=== PATIENT | male | born 2005 | race Caucasian/White ===

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

== ENCOUNTER 2024-06-28 07:45 | Outpatient (RCR) | payer MEDICAID, SELFPAY | END 2024-07-04 23:59 | disposition home or self-care (01) | LOC: SPT 07:45 | PROVIDERS: Visit Provider Nurse Practitioner Family | DX: M54.9 Dorsalgia, unspecified (principal) | CPT/HCPCS: 97110; 97161 ==

== ENCOUNTER 2024-07-05 05:00 | Outpatient (RCR) | payer MEDICAID, SELFPAY | END 2024-08-04 23:59 | disposition home or self-care (01) | LOC: SPT 05:00 | PROVIDERS: Visit Provider Nurse Practitioner Family | DX: M54.9 Dorsalgia, unspecified (principal) | CPT/HCPCS: 97110; 97140 ==

== ENCOUNTER 2024-08-05 06:30 | Outpatient (RCR) | payer MEDICAID, SELFPAY | END 2024-08-10 09:27 | disposition home or self-care (01) | LOC: SPT 06:30 | PROVIDERS: Visit Provider Nurse Practitioner Family | DX: M54.9 Dorsalgia, unspecified (principal) | CPT/HCPCS: 97110; 97530 ==